=== PATIENT | male | born 1965 | race Caucasian/White ===

== ENCOUNTER → 2024-02-21 06:29 | Outpatient (REF) | payer OTHER, SELFPAY ==
[2024-02-21 07:55] LABS: % Basophils 0.7 % (0-2); % Eosinophils 6.7 % (0-6); % Immature Granulocytes 0.3 % (0-0.5); % Lymphocytes 31.7 % (20.5-51.1); % Monocytes 9.5 % (1.7-9.3); % Neutrophils 51.1 % (42.2-75.2); Absolute Eosinophils 0.4 10^3/uL (0-0.7); Absolute Lymphocytes 1.9 10^3/uL (1.2-3.4); Absolute Monocytes 0.6 10^3/uL (0.1-0.6); Absolute Neutrophils 3.1 10^3/uL (1.4-6.5); Hemoglobin 14.6 g/dL (13.0-18.0); Mean Corp Hgb Conc. 36.5 g/dL (33.0-37.0); Mean Corpuscular Hgb 33.9 pg (27.0-31.0); Mean Corpuscular Volume 92.8 fL (80.0-94.0); Mean Platelet Volume 11.6 fL (7.4-10.4); Nucleated Red Blood Cells % 0 % (-); Platelet Count 165 10^3/uL (130-400); Red Blood Cell Count 4.31 10^6/uL (4.70-6.10); Red Cell Dist. Width 12.1 % (11.5-14.5)
[2024-02-21 08:03] LABS: ALT (SGPT) 15 U/L (0-50); AST (SGOT) 36 U/L (17-59); Albumin 4.4 g/dl (3.5-5.0); Alkaline Phosphatase 60 U/L (38-126); Blood Urea Nitrogen 22 mg/dl (9-20); Calcium 9.7 mg/dl (8.4-10.2); Carbon Dioxide 27 mmol/L (22-30); Chloride 102 mmol/L (98-107); Glucose 97 mg/dl (70-99); HDL Cholesterol 55 mg/dl; LDL Cholesterol, Calculated 89 mg/dl; Potassium 4.6 mmol/L (3.5-5.1); Sodium 136 mmol/L (135-145); Total Bilirubin 0.6 mg/dl (0.2-1.3); Total Cholesterol 168 mg/dl (50-199); Total Protein 6.8 g/dl (6.3-8.2); Triglyceride 121 mg/dl (10-149); Very Low Density Lipoprotein 24 mg/dl (0-30); eGFR > 60.00
[2024-02-21 08:32] LABS: TSH 1.53 uIU/ml (0.47-4.68)
[2024-02-23 00:51] LABS: PSA Total 0.8 ng/mL (0.0-4.0)
== END ==
LOC: REG 06:29
PROVIDERS: ATTENDING PHYSICIAN Internal Medicine
DX: Z00.00 Encounter for general adult medical examination without abnormal findings (principal); E78.5 Hyperlipidemia, unspecified; Z12.5 Encounter for screening for malignant neoplasm of prostate; R53.83 Other fatigue
CPT/HCPCS: 36415; 80053; 80061; 84153; 84154; 84443; 85025

== ENCOUNTER → 2025-04-06 08:01 | Outpatient (REF) | payer OTHER, SELFPAY ==
[2025-04-06 10:17] LABS: HDL Cholesterol 81 mg/dl; LDL Cholesterol, Calculated 63 mg/dl; Very Low Density Lipoprotein 26 mg/dl (0-30)
== END ==
LOC: REG 08:01
PROVIDERS: ATTENDING PHYSICIAN Nurse Practitioner; FAMILY PHYSICIAN Internal Medicine
DX: E78.2 Mixed hyperlipidemia (principal)
CPT/HCPCS: 36415; 80061

== ENCOUNTER → 2025-06-27 15:19 | Outpatient (REF) | payer OTHER, SELFPAY | LOC: RCS 15:19 | PROVIDERS: ATTENDING PHYSICIAN Internal Medicine Cardiovascular Disease; FAMILY PHYSICIAN Internal Medicine | DX: I50.32 Chronic diastolic (congestive) heart failure (principal) | CPT/HCPCS: 93306 ==

== ENCOUNTER → 2025-07-09 06:50 | Outpatient (REF) | payer OTHER, SELFPAY ==
[2025-07-09 07:54] LABS: Hematocrit 42.7 % (39.0-52.0); Hemoglobin 15.1 g/dL (13.0-18.0); Mean Corp Hgb Conc. 35.4 g/dL (33.0-37.0); Mean Corpuscular Volume 93.8 fL (80.0-94.0); Nucleated Red Blood Cells % 0 % (-); Platelet Count 163 10^3/uL (130-400); Red Cell Dist. Width 11.9 % (11.5-14.5)
[2025-07-09 08:21] LABS: ALT (SGPT) 15 U/L (0-50); AST (SGOT) 28 U/L (17-59); Albumin 4.5 g/dl (3.5-5.0); Alkaline Phosphatase 54 U/L (38-126); Blood Urea Nitrogen 18 mg/dl (9-20); Calcium 9.4 mg/dl (8.4-10.2); Carbon Dioxide 29 mmol/L (22-30); Chloride 104 mmol/L (98-107); Glucose 108 mg/dl (70-99); HDL Cholesterol 71 mg/dl; LDL Cholesterol, Calculated 82 mg/dl; Potassium 4.0 mmol/L (3.5-5.1); Sodium 138 mmol/L (135-145); Total Protein 7.4 g/dl (6.3-8.2); Very Low Density Lipoprotein 16 mg/dl (0-30); eGFR > 60.00
[2025-07-09 08:50] LABS: TSH 1.91 uIU/ml (0.47-4.68)
== END ==
LOC: REG 06:50
PROVIDERS: ATTENDING PHYSICIAN Nurse Practitioner; FAMILY PHYSICIAN Internal Medicine
DX: E78.5 Hyperlipidemia, unspecified (principal); Z00.00 Encounter for general adult medical examination without abnormal findings; N40.0 Benign prostatic hyperplasia without lower urinary tract symptoms; R53.83 Other fatigue
CPT/HCPCS: 36415; 80053; 80061; 84153; 84154; 84443; 85025